=== PATIENT | female | born 1985 | race Caucasian/White ===

== ENCOUNTER 2016-11-29 15:41 | Outpatient (CLI) | payer OTHER | END 2016-11-29 23:59 | DX: R63.4 Abnormal weight loss (principal); K85.90 Acute pancreatitis without necrosis or infection, unspecified ==

== ENCOUNTER 2017-01-15 17:22 | Outpatient (CLI) | payer OTHER | END 2017-01-15 17:23 | disposition home or self-care (01) | DX: K90.3 Pancreatic steatorrhea (principal) ==

== ENCOUNTER 2017-01-16 08:00 | Outpatient (CLI) | payer OTHER | END 2017-01-16 23:59 | disposition home or self-care (01) | DX: K90.3 Pancreatic steatorrhea (principal) ==

== ENCOUNTER 2019-03-24 14:47 | Outpatient (CLI) | payer OTHER ==
--- NOTE | 2019-03-24 16:05 | XRAY Report ---
Reason: THUMB PAIN,LEFT Procedure Date: 03/24/2019 Accession Number: [id number] / [id number] Procedure: WCP - Finger(s) LT CPT Code: FULL RESULT: EXAM: LEFT FIRST DIGIT RADIOGRAPHY EXAM DATE: 03/24/2019 03:08 PM. CLINICAL HISTORY: THUMB PAIN,LEFT. COMPARISON: None. TECHNIQUE: 3 views. FINDINGS: Bones: Normal. No fracture or bone lesion. Joints: Normal. No subluxations. Soft Tissues: Normal. No soft tissue swelling. IMPRESSION: Negative left thumb RADIA
== END 2019-03-24 14:48 | disposition home or self-care (01) ==
LOC: DI.WCP 14:47
PROVIDERS: ATTEND Family Medicine
DX: M79.645 Pain in left finger(s) (principal)
CPT/HCPCS: 73140

== ENCOUNTER 2021-12-21 15:13 | Outpatient (CLI) | payer OTHER ==
[2021-12-21 18:43] LABS: BASOPHILS % (AUTO) 0.8 %; EOSINOPHILS # (AUTO) 0.1 10^3/uL (0.0-0.7); EOSINOPHILS % (AUTO) 2.6 %; HCT - HEMATOCRIT 36.3 % (37.0-47.0); HGB - HEMOGLOBIN 12.2 g/dL (12.0-16.0); LYMPHOCYTES # (AUTO) 1.4 10^3/uL (1.5-3.5); LYMPHOCYTES % (AUTO) 35.1 %; MEAN CORPUSCULAR HEMOGLOBIN 28.4 pg (27.0-31.0); MEAN CORPUSCULAR HGB CONC 33.6 g/dL (32.0-36.0); MEAN CORPUSCULAR VOLUME 84.4 fL (81.0-99.0); MEAN PLATELET VOLUME 10.4 fL (7.9-10.8); MONOCYTES # (AUTO) 0.3 10^3/uL (0.0-1.0); MONOCYTES % (AUTO) 6.4 %; NEUTROPHILS # (AUTO) 2.1 10^3/uL (1.5-6.6); NEUTROPHILS % (AUTO) 54.8 %; PLT - PLATELET COUNT 256 10^3/uL (130-450); RED CELL DISTRIBUTION WIDTH 13.2 % (12.0-15.0); WHITE BLOOD COUNT 3.9 x10^3/uL (4.8-10.8)
[2021-12-21 19:02] LABS: ALBUMIN 4.5 g/dL (3.2-5.5); ALBUMIN/GLOBULIN RATIO 1.5 (1.0-2.2); BILIRUBIN,TOTAL 0.5 mg/dL (0.2-1.0); CALCIUM 9.4 mg/dL (8.5-10.3); CREATININE 0.7 mg/dL (0.4-1.0); POTASSIUM 3.9 mmol/L (3.5-5.0); TOTAL PROTEIN 7.6 g/dL (6.7-8.2)
[2021-12-21 19:20] LABS: FECAL OCCULT BLOOD (FIT) POSITIVE (NEGATIVE)
== END 2021-12-21 15:14 | disposition home or self-care (01) ==
LOC: LAB.N 15:13
PROVIDERS: ATTEND Family Medicine
DX: R19.7 Diarrhea, unspecified (principal); K62.5 Hemorrhage of anus and rectum
CPT/HCPCS: 36415; 80053; 81599; 82274; 83516; 83993; 85025; 86231; 87045; 87046; 87177; 87209; 87427; 87449; 87493

== ENCOUNTER 2021-12-25 13:48 | Outpatient (CLI) | payer OTHER ==
[2021-12-25] MEDS ORDERED: IOVERSOL 320 50 ML VIAL ONE (14:18)
[2021-12-25] MEDS ORDERED: IOVERSOL 320 100 ML VIAL IVP ONE ×2 (14:18→16:06)
[2021-12-25] MEDS ORDERED: IOVERSOL 320 50 ML VIAL PO ONE (16:06)
--- NOTE | 2021-12-25 17:22 | CT Report ---
PROCEDURE: Abdomen/Pelvis W INDICATIONS: RECTAL BLEEDING, DIARRHEA CONTRAST: IV CONTRAST: Optiray 320 ml: 100 PO CONTRAST: Optiray 320 ml50 TECHNIQUE: After the administration of IV and oral contrast, 5 mm thick sections acquired from the diaphragms to the symphysis. 5 mm thick coronal and sagittal reformats were acquired. For radiation dose reducti on, the following was used: automated exposure control, adjustment of mA and/or kV according to aparna ent size. COMPARISON: Ultrasound of abdomen dated 08/02/2015. FINDINGS: Image quality: Excellent. ABDOMEN: Lung bases: Lung bases are clear. Heart size is normal. Solid organs: Liver and spleen are normal in size and enhancement. Gallbladder is within normal weldon its Biliary system is non dilated. Pancreas enhances normally. No adrenal nodules. Kidneys demons trate normal size and enhancement, without hydronephrosis. Peritoneum and bowel: There is no bowel obstruction. No gastric or small bowel wall thickening. Appen rachele is visualized and is within normal limits. No gross abnormal colonic wall thickening or mesenteri c fat stranding. Questionable rectal wall thickening is seen which could represent low-grade proctiti s although no significant perirectal fat stranding is seen. No abscess collection. No free fluid of f ree air. Nodes and vessels: No retroperitoneal or mesenteric adenopathy by size criteria. Aorta and inferior vena cava are normal in size. Miscellaneous: No ventral hernias. PELVIS: Genitourinary: Bladder wall thickness is normal. Uterus and bilateral adnexa show no gross abnormal ity. Miscellaneous: No inguinal hernias or adenopathy. Bones: No suspicious bony lesions. No vertebral body compression fractures. IMPRESSION: 1. Questionable mild rectal wall thickening, without significant perirectal fat stranding. Low-grade proctitis cannot be entirely excluded. No abscess collection. No other area of abnormal bowel wall th ickening. No free fluid of free air. Reviewed by: Gordo Isaac MD on 12/25/2021 5:21 PM PDT Approved by: Gordo Isaac MD on 12/25/2021 5:21 PM PDT Station ID: [id number]
== END 2021-12-25 13:49 | disposition home or self-care (01) ==
LOC: DI 13:48
PROVIDERS: ATTEND Family Medicine
DX: K62.5 Hemorrhage of anus and rectum (principal); R19.7 Diarrhea, unspecified
CPT/HCPCS: 74177; Q9967

== ENCOUNTER 2022-02-09 23:36 | Outpatient (CLI) | payer OTHER | END 2022-02-09 23:37 | disposition left against medical advice (07) | LOC: EMS 23:36 | DX: U07.1 COVID-19 (principal) ==

== ENCOUNTER 2022-07-29 12:51 | Outpatient (CLI) | payer OTHER | END 2022-07-29 12:52 | disposition home or self-care (01) | LOC: NS 12:51 | PROVIDERS: ATTEND Nurse Practitioner Family | DX: K86.1 Other chronic pancreatitis (principal); K58.9 Irritable bowel syndrome, unspecified; Z71.3 Dietary counseling and surveillance | CPT/HCPCS: 97802 ==

== ENCOUNTER 2022-08-12 13:35 | Outpatient (CLI) | payer OTHER | END 2022-08-12 13:36 | disposition home or self-care (01) | LOC: NS 13:35 | PROVIDERS: ATTEND Nurse Practitioner Family | DX: Z71.3 Dietary counseling and surveillance (principal); K86.1 Other chronic pancreatitis; K58.9 Irritable bowel syndrome, unspecified | CPT/HCPCS: 97803 ==

== ENCOUNTER 2022-12-23 14:49 | Outpatient (CLI) | payer OTHER ==
[2022-12-23 17:53] LABS: BASOPHILS % (AUTO) 0.7 %; EOSINOPHILS # (AUTO) 0.2 10^3/uL (0.0-0.7); EOSINOPHILS % (AUTO) 3.3 %; HCT - HEMATOCRIT 34.9 % (37.0-47.0); HGB - HEMOGLOBIN 10.7 g/dL (12.0-16.0); LYMPHOCYTES # (AUTO) 1.4 10^3/uL (1.5-3.5); LYMPHOCYTES % (AUTO) 31.6 %; MEAN CORPUSCULAR HEMOGLOBIN 26.2 pg (27.0-31.0); MEAN CORPUSCULAR HGB CONC 30.7 g/dL (32.0-36.0); MEAN CORPUSCULAR VOLUME 85.5 fL (81.0-99.0); MONOCYTES # (AUTO) 0.3 10^3/uL (0.0-1.0); MONOCYTES % (AUTO) 7.1 %; NEUTROPHILS # (AUTO) 2.6 10^3/uL (1.5-6.6); NEUTROPHILS % (AUTO) 57.1 %; PLT - PLATELET COUNT 236 10^3/uL (130-450); RED BLOOD COUNT 4.08 10^6/uL (4.20-5.40); RED CELL DISTRIBUTION WIDTH 14.5 % (12.0-15.0); WHITE BLOOD COUNT 4.5 x10^3/uL (4.8-10.8)
[2022-12-23 18:03] LABS: ALBUMIN 3.9 g/dL (3.2-5.5); ALBUMIN/GLOBULIN RATIO 1.2 (1.0-2.2); ALKALINE PHOSPHATASE 90 IU/L (42-121); ALT ALANINE AMINOTRANSFERASE 52 IU/L (10-60); AST ASPARTATE AMINOTRANSFERASE 44 IU/L (10-42); BILIRUBIN,TOTAL 0.3 mg/dL (0.2-1.0); BUN - BLOOD UREA NITROGEN 13 mg/dL (6-20); CALCIUM 8.6 mg/dL (8.5-10.3); CARBON DIOXIDE - CO2 24 mmol/L (21-32); CHLORIDE 109 mmol/L (101-111); CHOL/HDL RATIO 2.3 (<4.4); CHOLESTEROL 133 mg/dL; CREATININE 0.8 mg/dL (0.4-1.0); GFR - MDRD 80 (>89); GLUCOSE 107 mg/dL (70-100); HDL CHOLESTEROL 58 mg/dL; SODIUM 138 mmol/L (135-145); TOTAL PROTEIN 7.1 g/dL (6.7-8.2); TRIGLYCERIDES 22 mg/dL
[2022-12-23 18:17] LABS: THYROID STIMULATING HORMONE 2.4 uIU/mL (0.34-5.60)
[2022-12-23 18:24] LABS: FERRITIN 4.4 ng/mL (11.0-306.8)
== END 2022-12-23 14:50 | disposition home or self-care (01) ==
LOC: LAB.N 14:49
PROVIDERS: ATTEND Physician Assistant Medical
DX: Z00.00 Encounter for general adult medical examination without abnormal findings (principal); E55.9 Vitamin D deficiency, unspecified; R53.83 Other fatigue
CPT/HCPCS: 36415; 80053; 80061; 82306; 82607; 82728; 83721; 84443; 85025

== ENCOUNTER 2023-01-20 15:25 | Outpatient (CLI) | payer OTHER ==
[2023-01-20 17:36] LABS: BASOPHILS % (AUTO) 0.5 %; EOSINOPHILS # (AUTO) 0.1 10^3/uL (0.0-0.7); EOSINOPHILS % (AUTO) 2.1 %; HGB - HEMOGLOBIN 12.2 g/dL (12.0-16.0); LYMPHOCYTES # (AUTO) 1.5 10^3/uL (1.5-3.5); LYMPHOCYTES % (AUTO) 26.3 %; MEAN CORPUSCULAR HEMOGLOBIN 27.9 pg (27.0-31.0); MEAN CORPUSCULAR HGB CONC 32.1 g/dL (32.0-36.0); MEAN CORPUSCULAR VOLUME 86.8 fL (81.0-99.0); MONOCYTES # (AUTO) 0.4 10^3/uL (0.0-1.0); MONOCYTES % (AUTO) 6.5 %; NEUTROPHILS # (AUTO) 3.6 10^3/uL (1.5-6.6); NEUTROPHILS % (AUTO) 64.2 %; PLT - PLATELET COUNT 233 10^3/uL (130-450); RED BLOOD COUNT 4.38 10^6/uL (4.20-5.40); RED CELL DISTRIBUTION WIDTH 15.3 % (12.0-15.0); WHITE BLOOD COUNT 5.7 x10^3/uL (4.8-10.8)
== END 2023-01-20 15:26 | disposition home or self-care (01) ==
LOC: LAB.N 15:25
PROVIDERS: ATTEND Physician Assistant Medical
DX: D50.9 Iron deficiency anemia, unspecified (principal)
CPT/HCPCS: 36415; 82728; 85025

== ENCOUNTER 2024-01-14 17:11 | Outpatient (CLI) | payer OTHER ==
[2024-01-14 20:29] LABS: BASOPHILS % (AUTO) 0.6 %; EOSINOPHILS # (AUTO) 0.3 10^3/uL (0.0-0.7); EOSINOPHILS % (AUTO) 4.7 %; HCT - HEMATOCRIT 36.4 % (37.0-47.0); HGB - HEMOGLOBIN 11.8 g/dL (12.0-16.0); LYMPHOCYTES # (AUTO) 1.8 10^3/uL (1.5-3.5); LYMPHOCYTES % (AUTO) 34.1 %; MEAN CORPUSCULAR HEMOGLOBIN 27.4 pg (27.0-31.0); MEAN CORPUSCULAR HGB CONC 32.4 g/dL (32.0-36.0); MEAN CORPUSCULAR VOLUME 84.7 fL (81.0-99.0); MEAN PLATELET VOLUME 9.7 fL (7.9-10.8); MONOCYTES # (AUTO) 0.4 10^3/uL (0.0-1.0); MONOCYTES % (AUTO) 6.5 %; NEUTROPHILS # (AUTO) 2.9 10^3/uL (1.5-6.6); NEUTROPHILS % (AUTO) 53.7 %; PLT - PLATELET COUNT 247 10^3/uL (130-450); RED CELL DISTRIBUTION WIDTH 13.5 % (12.0-15.0); WHITE BLOOD COUNT 5.4 x10^3/uL (4.8-10.8)
[2024-01-14 20:49] LABS: ALBUMIN 4.3 g/dL (3.2-5.5); ALBUMIN/GLOBULIN RATIO 1.4 (1.0-2.2); BILIRUBIN,TOTAL 0.5 mg/dL (0.2-1.0); CALCIUM 9.5 mg/dL (8.5-10.3); CREATININE 0.8 mg/dL (0.6-1.3); POTASSIUM 4.3 mmol/L (3.5-4.5); TOTAL PROTEIN 7.4 g/dL (6.4-8.9)
== END 2024-01-14 17:12 | disposition home or self-care (01) ==
LOC: LAB.N 17:11
PROVIDERS: ATTEND Nurse Practitioner Family
DX: K58.9 Irritable bowel syndrome, unspecified (principal); Z02.89 Encounter for other administrative examinations
CPT/HCPCS: 36415; 80053; 85025

== ENCOUNTER 2024-03-16 14:37 | Outpatient (CLI) | payer OTHER ==
[2024-03-16 18:18] LABS: % IRON SATURATION 7 % (20-50); IRON 32 ug/dL (50-212); TOTAL IRON BINDING CAPACITY 475 ug/dL (250-450); TRANSFERRIN 339 mg/dL (203-362)
[2024-03-16 18:23] LABS: HCG,QUALITATIVE BLOOD NEGATIVE
[2024-03-16 18:37] LABS: FERRITIN 5.3 ng/mL (11.0-306.8)
== END 2024-03-16 14:38 | disposition home or self-care (01) ==
LOC: LAB.N 14:37
PROVIDERS: ATTEND Nurse Practitioner Family
DX: D50.9 Iron deficiency anemia, unspecified (principal); L68.0 Hirsutism
CPT/HCPCS: 36415; 82728; 83540; 84403; 84466; 84703

== ENCOUNTER 2024-05-04 19:40 | Outpatient (CLI) | payer OTHER ==
--- NOTE | 2024-05-04 21:28 | Ultrasound Report ---
PROCEDURE: Pelvic Complete INDICATIONS: HIRSUTISM, SCREENING FOR OVARIAN CA TECHNIQUE: Real-time transabdominal scanning was performed of the pelvic organs, with image documentation. COMPARISON: CT abdomen and pelvis 12/25/2021 FINDINGS: Uterus: Uterus is anteverted and normal in size at 10.5 x 4.1 x 5.5 cm. The myometrium is homogeneo us. The endometrium measures 13.7 mm in combined thickness. No uterine fibroids. Ovaries: The right ovary measures 3.3 x 3.2 x 2.5 cm, with a calculated ovarian volume of 13.8 cc. Simple cyst measuring 1.9 x 1.4 x 1.6 cm. The left ovary measures 2.1 x 2.1 x 2.4 cm, with a calculat ed ovarian volume of 5.5 cc. Dominant follicle measuring 1.5 cm. The ovaries have a normal sonographi c appearance. Less than 12 follicles can be seen in each ovary. No adnexal masses are seen. No cyst ic lesions measuring greater than 3 cm. Other: No free pelvic fluid. IMPRESSION: 1.No ovarian masses. 2.Simple ovarian cysts measuring up to 1.9 cm. No follow-up is necessary. Reviewed by: Edis Casey MD on 05/04/2024 9:26 PM PDT Approved by: Edis Casey MD on 05/04/2024 9:26 PM PDT Station ID: [id number]
== END 2024-05-04 19:41 | disposition home or self-care (01) ==
LOC: DI 19:40
PROVIDERS: ATTEND Nurse Practitioner Family
DX: N83.291 Other ovarian cyst, right side (principal)